=== PATIENT | female | born 1950 | race Caucasian/White ===

== ENCOUNTER 2017-10-18 10:14 | Emergency (ER) | payer OTHER ==
[~2017-10-18] VITALS: Ht 162.6 cm; Wt 127.7 kg
[~2017-10-18 10:14] MED LIST: ALBU18HF INH; ATOR20TA9 PO; BECL8.7A6 INH; FEXO180T72 PO; FLUT16SP NS; GABA300C10 PO; LISI-167 PO; METF500T4 PO; OMEP-110 PO
[2017-10-18] MEDS ORDERED: ASPIRIN 81 MG TABLET CHEW ONE (11:58)
[2017-10-18] MEDS ORDERED: SODIUM CHLORIDE FLUSH 10ML SYR IVF ONE (12:00)
[2017-10-18] MEDS ORDERED: ASPIRIN 81 MG TABLET CHEW PO ONE (12:00)
[2017-10-18 12:42] LABS: HEMATOCRIT 37.4 % (34.6-47.8); HEMOGLOBIN 12.5 g/dL (11.7-16.4)
[2017-10-18 12:56] LABS: ASPARTATE AMINO TRANSFERASE 8 U/L (15-37); BLOOD UREA NITROGEN 12 mg/dL (7-18)
[2017-10-18 13:00] LABS: IS PT STATUS REG ER OR PRE ER? YES
[2017-10-18 14:00] VITALS: BP 132/74
[2017-10-18] MEDS ORDERED: IBUPROFEN 200 MG TABLET PO ONE (14:00)
== END 2017-10-18 14:04 | disposition home or self-care (01) ==
LOC: ED 11:07
DX: R07.89 Other chest pain (principal); R05 Cough; Z87.891 Personal history of nicotine dependence; E78.5 Hyperlipidemia, unspecified; I10 Essential (primary) hypertension; E11.9 Type 2 diabetes mellitus without complications
CPT/HCPCS: 36415; 71010; 80053; 84484; 85025; 85379; 93005; 99285

== ENCOUNTER → 2018-02-25 | Outpatient (CLI) | payer OTHER | END | disposition home or self-care (01) | LOC: CFH 10:35 | PROVIDERS: ATTEND Family Medicine | DX: Z12.31 Encounter for screening mammogram for malignant neoplasm of breast (principal); N60.02 Solitary cyst of left breast | CPT/HCPCS: 77067 ==

== ENCOUNTER → 2018-03-11 | Outpatient (CLI) | payer OTHER | END | disposition home or self-care (01) | LOC: CFH 10:53 | PROVIDERS: ATTEND Family Medicine | DX: N63.10 Unspecified lump in the right breast, unspecified quadrant (principal) | CPT/HCPCS: 77065 ==

== ENCOUNTER → 2019-03-17 | Outpatient (CLI) | payer MEDICARE ==
[~2019-03-17] MED LIST changes: +ATOR20TA37 PO; -ATOR20TA9 PO; +METF500T17 PO; -METF500T4 PO
== END | disposition home or self-care (01) ==
LOC: CFH 09:40
PROVIDERS: ATTEND Family Medicine
DX: Z12.31 Encounter for screening mammogram for malignant neoplasm of breast (principal); Z13.820 Encounter for screening for osteoporosis; Z78.0 Asymptomatic menopausal state
CPT/HCPCS: 77080; 77067

== ENCOUNTER → 2019-04-25 | Outpatient (CLI) | payer MEDICARE | END | disposition home or self-care (01) | LOC: CFH 12:17 | PROVIDERS: ATTEND Family Medicine | DX: C49.21 Malignant neoplasm of connective and soft tissue of right lower limb, including hip (principal); M79.89 Other specified soft tissue disorders; Z98.890 Other specified postprocedural states | CPT/HCPCS: 71046 ==

== ENCOUNTER → 2020-07-26 | Outpatient (CLI) | payer MEDICARE ==
[~2020-07-26] MED LIST changes: -FLUT16SP NS; +FLUT16SP24 NS
== END | disposition home or self-care (01) ==
LOC: CFH 14:07
PROVIDERS: ATTEND Family Medicine
DX: R92.1 Mammographic calcification found on diagnostic imaging of breast (principal)
CPT/HCPCS: 76642; 77066; G0279

== ENCOUNTER → 2021-07-15 | Outpatient (CLI) | payer MEDICARE | END | disposition home or self-care (01) | LOC: CVU 15:08 | PROVIDERS: ATTEND Internal Medicine Cardiovascular Disease | DX: I08.3 Combined rheumatic disorders of mitral, aortic and tricuspid valves (principal); I48.92 Unspecified atrial flutter; R06.02 Shortness of breath | CPT/HCPCS: 93306 ==

== ENCOUNTER 2021-08-06 08:02 | Day surgery (SDC) | payer MEDICARE ==
[~2021-08-06] VITALS: Ht 162.6 cm; Wt 123.6 kg
[2021-08-06] MEDS ORDERED: SODIUM CHLORIDE 0.9% 1,000 ML IV SCH (08:30)
[2021-08-06] MEDS ORDERED: OMEP40CA8 PO (08:32)
[2021-08-06] MEDS ORDERED: APIX5TAB PO (08:34)
[2021-08-06] MEDS ORDERED: METF10007 PO (08:34)
[2021-08-06] MEDS ORDERED: FLUT10.6 INH (08:34)
[2021-08-06] MEDS ORDERED: ATOR20TA37 PO (08:35)
[2021-08-06 08:38] VITALS: BP 148/98
[2021-08-06 09:35] LABS: BASOPHILS % (AUTO) 1 % (0-1); EOSINOPHILS % (AUTO) 2 % (1-7); LYMPHOCYTES % (AUTO) 13 % (22-44); MEAN CORPUSCULAR HEMOGLOBIN 26.9 pg (27.0-34.8); MEAN CORPUSCULAR HGB CONC 32.8 g/dL (32.4-35.8); MEAN PLATELET VOLUME 8.7 fL (7.4-10.4); MONOCYTES % (AUTO) 7 % (2-9); NEUTROPHILS % (AUTO) 78 % (42-75); PLATELET COUNT 225 x10^3/uL (130-400); RED BLOOD COUNT 4.58 x10^6/uL (3.82-5.3); RED CELL DISTRIBUTION WIDTH 16.6 % (9.6-15.2)
[2021-08-06 09:44] LABS: ANION GAP 9 mmol/L (5-15); CALCIUM 9.1 mg/dL (8.5-10.1); CHLORIDE 108 mmol/L (98-107); CREATININE 0.86 mg/dL (0.55-1.02)
[2021-08-06] MEDS ORDERED: LIDOCAINE 2%, 20ML ONE (10:06)
[2021-08-06] MEDS ORDERED: ROCURONIUM 10 MG/ML,10ML ONE (10:07)
[2021-08-06] MEDS ORDERED: SUCCINYLCHOLINE 20 MG/ML, 10ML ONE (10:07)
[2021-08-06] MEDS ORDERED: FENTANYL PF 250 MCG/5ML ONE (10:07)
[2021-08-06] MEDS ORDERED: PROPOFOL 10 MG/ML, 20ML ONE (10:07)
[2021-08-06] MEDS ORDERED: DEXAMETHASONE 4 MG/ML, 1ML ONE (10:07)
[2021-08-06] MEDS ORDERED: ONDANSETRON 2MG/ML, 2ML ONE (10:07)
[2021-08-06] MEDS ORDERED: MIDAZOLAM 1 MG/ML, 2ML ONE (10:07)
[2021-08-06] MEDS ORDERED: MEPERIDINE/PF 25MG/0.5ML IVPush PRN (10:30)
[2021-08-06] MEDS ORDERED: DIPHENHYDRAMINE 50 MG/ML, 1ML IVPush PRN (10:30)
[2021-08-06] MEDS ORDERED: LABETALOL 5MG/ML, 20ML IV PRN (10:30)
[2021-08-06] MEDS ORDERED: EPHEDRINE 50 MG/ML, 1ML IM PRN (10:30)
[2021-08-06] MEDS ORDERED: PROMETHAZINE 25 MG/ML, 1ML IVPush PRN (10:30)
[2021-08-06] MEDS ORDERED: DIAZEPAM 5 MG/ML, 2ML IVPush PRN (10:30)
[2021-08-06] MEDS ORDERED: FENTANYL PF 100 MCG/2ML IV PRN (10:30)
[2021-08-06] MEDS ORDERED: HYDROmorphone 1 MG/ML, 1ML INJ IVPush PRN (10:30)
[2021-08-06] MEDS ORDERED: EPHEDRINE 50 MG/ML, 1ML IVPush PRN (10:30)
[2021-08-06] MEDS ORDERED: ONDANSETRON 2MG/ML, 2ML IVPush PRN (10:30)
[2021-08-06] MEDS ORDERED: OXYcodone 5 MG/5 ML ORAL.SOL UDC PO PRN (10:30)
[2021-08-06] MEDS ORDERED: ALBUTEROL HFA 90 MCG/SPRAY INH PRN (11:30)
[2021-08-06] MEDS ORDERED: EPHEDRINE 50 MG/ML, 1ML ONE (11:37)
[2021-08-06] MEDS ORDERED: APIXABAN 5 MG TABLET ONE (12:24)
[2021-08-06] MEDS ORDERED: TEMPLATE NON-FORMULARY MED. (Fluticasone Propionate (Flovent Hfa 44 Mcg/Inh) 2 PUFF) INH SCH (21:00)
[2021-08-06] MEDS ORDERED: ATORVASTATIN 20 MG TABLET PO SCH ×2 (21:00)
[2021-08-06] MEDS ORDERED: LISINOPRIL 10 MG TABLET PO SCH (21:00)
[2021-08-06] MEDS ORDERED: TEMPLATE NON-FORMULARY MED. (Metformin HCl 1,000 MG) PO SCH (21:00)
[2021-08-06] MEDS ORDERED: APIXABAN 5 MG TABLET PO SCH (21:00)
[2021-08-07] MEDS ORDERED: [UNRECOGNIZED DRUG - REMARK] PO SCH (09:00)
[2021-08-07] MEDS ORDERED: TEMPLATE NON-FORMULARY MED. (Omeprazole** 40 MG) PO SCH (09:00)
== END 2021-08-06 15:46 | disposition home or self-care (01) ==
LOC: CACL 08:02
PROVIDERS: ATTEND Internal Medicine Cardiovascular Disease
DX: R06.02 Shortness of breath (principal); I48.91 Unspecified atrial fibrillation; I48.92 Unspecified atrial flutter; I36.1 Nonrheumatic tricuspid (valve) insufficiency; I35.8 Other nonrheumatic aortic valve disorders; I34.0 Nonrheumatic mitral (valve) insufficiency; I10 Essential (primary) hypertension; E78.5 Hyperlipidemia, unspecified; E11.9 Type 2 diabetes mellitus without complications; Z91.010 Allergy to peanuts; J45.909 Unspecified asthma, uncomplicated; Z79.899 Other long term (current) drug therapy; Z88.8 Allergy status to other drugs, medicaments and biological substances; F31.9 Bipolar disorder, unspecified; Z79.01 Long term (current) use of anticoagulants; Z20.822 Contact with and (suspected) exposure to COVID-19; Z91.018 Allergy to other foods; Z87.891 Personal history of nicotine dependence; Z72.89 Other problems related to lifestyle; Z98.890 Other specified postprocedural states
CPT/HCPCS: 36415; 71046; 80048; 85025; 93005; 93312; 93321; 93325; 93613; 93621; 93653; C1730; C1732; C1894; U0003; U0005; J1100; J2250; J2405; J2704; J3010; J0330

== ENCOUNTER 2021-08-13 13:27 | Emergency (ER) | payer MEDICARE ==
[~2021-08-13] VITALS: Ht 154.9 cm; Wt 128.8 kg
[~2021-08-13 13:27] MED LIST changes: +APIX5TAB PO; +FLUT10.6 INH; +METF10007 PO; +OMEP40CA8 PO
[2021-08-13 13:32] VITALS: BP 183/87
== END 2021-08-13 15:19 | disposition left against medical advice (07) ==
LOC: ED 13:57
DX: S10.12XA Blister (nonthermal) of throat, initial encounter (principal); X58.XXXA Exposure to other specified factors, initial encounter; Y93.89 Activity, other specified; Y92.89 Other specified places as the place of occurrence of the external cause; Y99.8 Other external cause status
CPT/HCPCS: 99281